=== PATIENT | female | born 1970 | race Caucasian/White ===

== ENCOUNTER 2016-12-02 20:31 | Emergency (ER) | payer SELFPAY ==
[~2016-12-02] VITALS: Ht 152.4 cm; Wt 61.5 kg
[2016-12-02 20:33] VITALS: BP 184/116; PULSE 96; RESP 16; TEMP 98.5; O2SAT 96
== END 2016-12-02 21:30 | disposition left against medical advice (07) ==
LOC: NEPD 20:31
DX: K13.79 Other lesions of oral mucosa (principal); Z53.21 Procedure and treatment not carried out due to patient leaving prior to being seen by health care provider
CPT/HCPCS: 99281